=== PATIENT | male | born 1985 | race Caucasian/White ===

== ENCOUNTER 2021-02-14 09:30 | Emergency (ER) | payer OTHER ==
[~2021-02-14] VITALS: Ht 177.8 cm; Wt 88.0 kg
[2021-02-14 09:33] VITALS: BP 125/72
--- NOTE | 2021-02-14 10:15 | NUR ---
patient was given a sling for left arm. ERMD notified.
[2021-02-14] MEDS ORDERED: NAPR-1704 PO (10:16)
[2021-02-14 10:23] VITALS: BP 125/72
== END 2021-02-14 10:23 | disposition home or self-care (01) ==
LOC: MED 09:30
DX: M77.12 Lateral epicondylitis, left elbow (principal); R20.2 Paresthesia of skin; M54.5 Low back pain; F12.90 Cannabis use, unspecified, uncomplicated; Z88.0 Allergy status to penicillin
CPT/HCPCS: 99282